=== PATIENT | female | born 2000 | race Caucasian/White ===

== ENCOUNTER 2021-01-29 12:17 | Emergency (ER) | payer MEDICAID ==
[~2021-01-29] VITALS: Ht 165.1 cm; Wt 54.5 kg
[2021-01-29] MEDS ORDERED: HYDROCODONE/ACETAMINOPHEN 5/325MG TABLET PO STA (12:51)
[2021-01-29] MEDS ORDERED: TETANUS, DIPHTHERIA, PERTUSSIS VAC/PF 0.5ML (>7YR OLD) IM ONE (13:00)
[2021-01-29] MEDS ORDERED: T3 PO (15:53)
[2021-01-29 16:31] VITALS: BP 120/68
== END 2021-01-29 16:30 | disposition home or self-care (01) ==
LOC: ER 12:17
DX: S01.81XA Laceration without foreign body of other part of head, initial encounter (principal); V43.52XA Car driver injured in collision with other type car in traffic accident, initial encounter; Y93.89 Activity, other specified; Y92.488 Other paved roadways as the place of occurrence of the external cause
CPT/HCPCS: 12013; 70486; 81025; 90715; 99285